=== PATIENT | female | born 2005 | race Caucasian/White ===

== ENCOUNTER 2023-08-13 12:28 | Emergency (ER) | payer OTHER ==
[~2023-08-13] VITALS: Ht 160 cm; Wt 50.0 kg
[2023-08-13 12:35] VITALS: BP 122/90
[2023-08-13] MEDS ORDERED: ONDANSETRON INJECTION 4 MG/2 ML (SDV) ONE (12:43)
[2023-08-13] MEDS ORDERED: morphine INJ 4 MG/ML 1 ML (VIAL/SYRINGE) ONE (12:43)
[2023-08-13] MEDS ORDERED: Tetanus/Diphtheria/Pertussis (Acell) ADULT Vaccine 0.5 ML IM ONE (12:45)
[2023-08-13] MEDS ORDERED: morphine INJ 4 MG/ML 1 ML (VIAL/SYRINGE) IVP ONE ×2 (12:45→13:15)
[2023-08-13] MEDS ORDERED: ONDANSETRON INJECTION 4 MG/2 ML (SDV) IVP ONE (12:45)
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
[2023-08-13] MEDS ORDERED: ONDA4TAB11 SL (14:41)
[2023-08-13] MEDS ORDERED: ACHD5005 PO (14:41)
== END 2023-08-13 15:27 | disposition home or self-care (01) ==
LOC: ER 12:30
DX: T22.212A Burn of second degree of left forearm, initial encounter (principal); Z87.891 Personal history of nicotine dependence; Z23 Encounter for immunization; X12.XXXA Contact with other hot fluids, initial encounter
CPT/HCPCS: 90471; 90715; 96374; 96375